=== PATIENT | female | born 1985 | race African-American/Black ===

== ENCOUNTER 2018-09-07 10:58 | Emergency (ER) | payer MEDICAID ==
[~2018-09-07] VITALS: Ht 167.6 cm; Wt 90.9 kg
[2018-09-07 11:01] VITALS: Ht 167.6 cm; Wt 90.9 kg
[2018-09-07] MEDS ORDERED: PROPRANOLOL HCL20 MG (11:02)
[2018-09-07] MEDS ORDERED: KLONOPIN0.5 MG (11:02)
[2018-09-07 12:45] LABS: APPEARANCE CLEAR (CLEAR); BILIRUBIN NEGATIVE (NEGATIVE); COLOR YELLOW (YELLOW); GLUCOSE NEGATIVE (NEGATIVE); KETONE NEGATIVE (NEGATIVE); NITRITE NEGATIVE (NEGATIVE); PROTEIN NEGATIVE (NEGATIVE); UROBILINOGEN NORMAL (NORMAL)
[2018-09-07] MEDS ORDERED: DIFLUCAN150 MG PO (13:21)
[2018-09-07 13:32] VITALS: BP 129/80
== END 2018-09-07 13:32 | disposition home or self-care (01) ==
LOC: D.ER 10:58
PROVIDERS: Family Medicine
DX: B37.3 Candidiasis of vulva and vagina (principal)